=== PATIENT | male | born 1970 | race Two or more races ===

== ENCOUNTER 2022-04-11 11:47 | Emergency (ER) | payer OTHER ==
[~2022-04-11] VITALS: Ht 170.2 cm; Wt 77.1 kg
[2022-04-11 12:04] VITALS: BP 133/76
[2022-04-11] MEDS ORDERED: DEXA4TAB PO (12:18)
--- NOTE | 2022-04-11 12:20 | NUR ---
PT SEEN BY DR. HAMPTON FOR EVAL.
--- NOTE | 2022-04-11 12:25 | NUR ---
Patient discharged to home in stable condition. Written and verbal after care instructions given. Patient verbalizes understanding of instruction.
== END 2022-04-11 12:25 | disposition home or self-care (01) ==
LOC: ER 11:58
DX: U07.1 COVID-19 (principal); J04.0 Acute laryngitis